=== PATIENT | male | born 1975 | race African-American/Black ===

== ENCOUNTER 2025-04-05 13:24 | Emergency (ER) | payer MEDICARE, MEDICAID ==
[~2025-04-05] VITALS: Ht 185.4 cm; Wt 144.0 kg
[~2025-04-05 13:24] MED LIST: AMLO10TA80 PO; FOLI0.8T53 PO; SEVE800T8 PO
[2025-04-05 13:27] VITALS: BP 167/90; TEMP 36.8; O2SAT 89
[2025-04-05 13:30] VITALS: PULSE 112; RESP 22; O2SAT 89
[2025-04-05 14:27] LABS: HEMATOCRIT. 36.8 % (42.0-52.0); HEMOGLOBIN. 11.9 g/dL (14.0-18.0); MEAN PLATELET VOLUME 8.7 fl (7.4-10.4); PLATELET 149 x1000/uL (130-400); RED BLOOD CELL COUNT 3.87 mill/uL (4.7-6.1); RED CELL DISTRIBUTION WIDTH 14.8 % (11.6-14.6)
[2025-04-05 14:39] LABS: INR 1.0
[2025-04-05 14:41] LABS: UREA NITROGEN BLOOD 58 mg/dL (9-23)
[2025-04-05 14:42] LABS: BAND% 2.0 % (1.0-6.0); EOSINOPHILS % MANUAL 3.0 % (0.0-5.0); LYMPHOCYTES % MANUAL 9.0 % (20.0-50.0); MONOCYTES % MANUAL 12.0 % (2.0-8.0); NEUTROPHILS % MANUAL 74.0 % (45.0-75.0); PLATELET ESTIMATE NORMAL
[2025-04-05 14:43] LABS: TROPONIN I HIGH SENSITIVITY 53 ng/L (3.0-53)
[2025-04-05 14:58] LABS: CREATININE 8.7 mg/dL (0.6-1.3)
== END 2025-04-05 14:34 | disposition left against medical advice (07) ==
LOC: ER 13:24
DX: R07.9 Chest pain, unspecified (principal); Z53.21 Procedure and treatment not carried out due to patient leaving prior to being seen by health care provider
CPT/HCPCS: 36415; 71045; 80048; 84484; 85025; 86850; 86900; 93005